=== PATIENT | male | born 1970 | race Two or more races ===

== ENCOUNTER 2024-05-12 03:14 | Emergency (ER) | payer OTHER ==
[~2024-05-12] VITALS: Ht 177.8 cm; Wt 97.7 kg
--- NOTE | 2024-05-12 03:36 | ED.PDOC ---
GI ASSESSMENT HPI Comments A 53 year old male presents to the ED with the chief complaint of abdominal pain onset 4 hours ago. Patient states he had pizza for dinner and a few hours after he began experiencing epigastric pain that radiates to his RUQ as well as nausea, vomiting. He tried taking Pepto Bismol but did not notice an improvement. Denies any past medical history as well as diarrhea, fever, dysuria or hematuria. No other symptoms or modifying factors present at this time. Chief Complaint: Abdominal Pain Time Seen by MD: 03:30 Reviewed Notes: Medications, Allergies Allergies: Coded Allergies: NO KNOWN ALLERGIES (Unverified , 05/12/24) Information Source: Patient Mode of Arrival: Ambulatory Timing: Hours Duration: Since onset Prehospital treatment: None Severity: Moderate Pain Location: Epigastric, RUQ Associated sign and symptoms: Nausea, Vomiting, Abdominal Pain Past Medical History PAST MEDICAL HISTORY: Denies Surgical History: Denies all surgeries Family History Family History: Reviewed,noncontributory to illness, No family hx of Cancer, No family hx of DM, No family hx of Heart mary jo, No family hx of HTN, No family hx ofKidney mary jo, No family hx of Liver mary jo, No family hx of Lung mary jo, No family hx of Stroke Social History Smoker: Non-Smoker Alcohol: Denies ETOH Use Drugs: Denies Drug Use Lives In: Home Constitutional: denies: chills, diaphoresis, fatigue, fever, malaise, sweats, weakness, others EENTM: denies: blurred vision, double vision, ear bleeding, ear discharge, ear drainage, ear pain, ear ringing, eye pain, eye redness, hearing loss, mouth pain, mouth swelling, nasal discharge, nose bleeding, nose congestion, nose pain, photophobia, tearing, throat pain, throat swelling, voice changes, others Respiratory: denies: cough, hemoptysis, orthopnea, SOB at rest, shortness of breath, SOB with excertion, stridor, wheezing, others Cardiovascular: denies: chest pain, dizzy spells, diaphoresis, Dyspnea on exertion, edema, irregular heart beat, left arm pain, lightheadedness, palpitations, PND, syncope, others Gastrointestinal: denies: abdomen distended, abdominal pain, blood streaked bowels, constipated, diarrhea, dysphagia, difficulty swallowing, hematemesis, melena, nausea, poor appetite, poor fluid intake, rectal bleeding, rectal pain, vomiting, others Genitourinary: denies: burning, dysuria, flank pain, frequency, hematuria, incontinence, penile discharge, penile sore, pain, testicle pain, testicle swelling, urgency, others Neurological: denies: dizziness, fainting, headache, left sided numbness, left sided weakness, numbness, paresthesia, pre-existing deficit, right sided numbness, right sided weakness, seizure, speech problems, tingling, tremors, weakness, others Musculoskeletal: denies: back pain, gout, joint pain, joint swelling, muscle pain, muscle stiffness, neck pain, others Integumetry: denies: bruises, change in color, change in hair/nails, dryness, laceration, lesions, lumps, rash, wounds, others Allergic/Immunocompromised: denies: Difficulty Healing, Frequent Infections, Hives, Itching, others Hematologic/Lymphatic: denies: anemia, blood clots, easy bleeding, easy bruising, swollen glands, others Endocrine: denies: excessive hunger, excessive sweating, excessive thirst, excessive urination, flushing, intolerance to cold, intolerance to heat, unexplained weight gain, unexplained weight loss, others Psychiatric: denies: anxiety, bipolar disorder, depression, hopeless, panic disorder, schizophrenia, sleepless, suicidal, others All Other Systems: Reviewed and Negative Physical Exam General Appearance: No Apparent Distress, Normal HEENT: Normal ENT Inspection, Pharynx Normal, TMs Normal Neck: Full Range of Motion, Non-Tender, Normal, Normal Inspection Respiratory: Chest Non-Tender, Lungs Clear, No Accessory Muscle Use, No Respiratory Distress, Normal Breath Sounds Cardiovascular: No Edema, No JVD, No Murmur, No Gallop, Normal Peripheral Pulses, Regular Rate/Rhythm Breast Exam: Deferred Gastrointestinal: No Organomegaly, Non Tender, No Pulsatile Mass, Normal Bowel Sounds, Soft Genitalia: Deferred Pelvic: Deferred Rectal: Deferred Extremities: No calf tenderness, Normal capillary refill, Normal inspection, Normal range of motion, Non-tender, No pedal edema Musculoskeletal : Apperance: Normal Neurologic: Alert, interlocking installer II-XII nml as Tested, No Motor Deficits, Normal Affect, Normal Mood, No Sensory Deficits Cerebellar Function: Normal Reflexes: Normal Skin: Dry, Normal Color, Warm Lymphatic: No Adenopathy Was a procedure done? Was a procedure done?: No GI differential Dx Differential Diagnosis: Cholangitis, Cholecystitis, Constipation, Gastroenteritis, Hepatitis, UTI, Urolithiasis, Dehydration, Electrolyte Imbalance, Bacterial, Impaction X-Ray, Labs, Meds, VS Vital Signs Date Time Temp Pulse Resp B/P (MAP) Pulse Ox O2 Delivery O2 Flow Rate FiO2 05/12/24 05:00 99.0 88 20 135/91 (106) 97 99.0 05/12/24 05:00 88 20 96 Room Air* 0 21 05/12/24 03:47 71 20 145/91 05/12/24 03:29 98.5 71 20 145/91 (109) 99 Lab Test 05/12/24 03:52 05/12/24 03:30 Range/Units White Blood Count 12.3 H 4.4-10.8 10^3/uL Red Blood Count 5.07 4.5-5.90 10^6/uL Hemoglobin 14.8 13.5-17.5 g/dL Hematocrit 43.0 41.0-53.0 % Mean Corpuscular Volume 84.8 80.0-100.0 fL Mean Corpuscular Hemoglobin 29.2 28.0-32.0 pg Mean Corpuscular Hemoglobin Concent 34.4 32.0-36.0 g/dL Red Cell Distribution Width 13.3 11.8-14.3 % Platelet Count 304 140-450 10^3/uL Mean Platelet Volume 7.1 6.9-10.8 fL Neutrophils (%) (Auto) 79.9 37.0-80.0 % Lymphocytes (%) (Auto) 11.6 10.0-50.0 % Monocytes (%) (Auto) 7.6 0.0-12.0 % Eosinophils (%) (Auto) 0.5 0.0-7.0 % Basophils (%) (Auto) 0.4 0.0-2.0 % Neutrophils # (Auto) 9.8 H 1.6-8.6 10 ^3/uL Lymphocytes # (Auto) 1.4 0.4-5.4 10 ^3/uL Monocytes # (Auto) 0.9 0-1.3 10 ^3/uL Eosinophils # (Auto) 0.1 0-0.8 10 ^3/uL Basophils # (Auto) 0.1 0-0.2 10 ^3/uL Nucleated Red Blood Cells 0.0 % Sodium Level 136 136-145 mmol/L Potassium Level 3.8 3.5-5.1 mmol/L Chloride Level 104 98-107 mmol/L Carbon Dioxide Level 24 20-31 mmol/L Anion Gap 8 5-15 Blood Urea Nitrogen 8 L 9-23 mg/dL Creatinine 1.04 0.700-1.30 mg/dL Glomerular Filtration Rate Calc 86 >90 mL/min BUN/Creatinine Ratio 7.7 L 10.0-20.0 Serum Glucose 139 H 74-106 mg/dL Calcium Level 9.7 8.7-10.4 mg/dL Total Bilirubin 0.7 0.2-1.0 mg/dL Aspartate Amino Transferase (AST) 20 13-40 U/L Alanine Aminotransferase (ALT) 24 7-40 U/L Alkaline Phosphatase 130 H 46-116 U/L Total Protein 7.6 5.7-8.2 g/dL Albumin 4.8 3.2-4.8 g/dL Lipase 56 H 12-53 U/L Urine Color Light-yellow Yellow Urine Clarity Clear Clear Urine pH 5.5 5.0-9.0 Urine Specific [place] 1.020 1.001-1.035 Urine Protein Negative Negative Urine Ketones Trace Negative Urine Blood Negative Negative /uL Urine Nitrite Negative Negative Urine Bilirubin Negative Negative Urine Urobilinogen Normal Negative mg/dL Urine Leukocyte Esterase Negative Negative /uL Urine RBC 1 0 - 3 /hpf Urine WBC 3 0 - 3 /hpf Urine Squamous Epithelial Cells None seen <5 /hpf Urine Bacteria None seen None Seen /hpf Urine Mucus Few None Seen Urine Glucose Normal Normal mg/dL Current Medications Medications (Trade) Dose Ordered Sig/Lito Route Start Time Stop Time Status Last Admin Sodium Chloride 1,000 ml @ 1,000 mls/hr Q1H ONCE IV 05/12/24 03:45 05/12/24 04:44 DC 05/12/24 03:49 Ondansetron HCl (Zofran) 4 mg ONCE ONCE IV 05/12/24 03:45 05/12/24 03:46 DC 05/12/24 03:48 Morphine Sulfate 4 mg ONCE ONCE IV 05/12/24 03:45 05/12/24 03:46 DC 05/12/24 03:47 Pantoprazole Sodium (Protonix) 40 mg ONCE ONCE IV 05/12/24 03:45 05/12/24 03:46 DC 05/12/24 03:48 Time of 1ST Reevaluation: 04:00 Reevaluation 1ST: Unchanged Patient Education/Counseling: Diagnosis, Treatment, Prognosis Family Education/Counseling: No Family Present Departure 1 Departure Time of Disposition: 05:20 (Patient presented with abdominal pain that was concerning for possible appendicits, gastritis, cholecystitis, colitis, gastroenteritis, sbo, or orther possible surgical emergency. Data: 1. I ordered and reviewed the result of at least 3 labs including a CBC, BMP, and Urinalysis. 2. I independently interpreted the following tests: CT Abdoment and Pelvis is concerning for acute cholecystitis .Risk:This patient has a high risk of morbidity due to further diagnostic testing or treatment and may suffer from an acute abdominal process disorder. Workup reveals acute cholecystitis and patient should be admitted for further workup. and possible expert consultation. ) Impression: Primary Impression: Acute cholecystitis Additional Impressions: Projectile vomiting with nausea Intractable abdominal pain Disposition: ADMITTED INPATIENT Admit to: Med Surg Condition: Guarded Critical Care Note Critical Care Time?: Yes Critical care comment: Intractable abdominal pain Authorized and Performed by: Karol Owen MD Total critical care time: Approximately 39 minutes Due to a high probability of clinically significant, life threatening deterioration, the patient required my highest level of preparedness to intervene emergently and I personally spent this critical care time directly and personally managing the patient. This critical care time included obtaining a history; examining the patient; pulse oximetry; ordering and review of studies; arranging urgent treatment with development of a management plan; evaluation of patient's response to treatment; frequent reassessment; and, discussions with other providers. This critical care time was performed to assess and manage the high probability of imminent, life-threatening deterioration that could result in multi-organ failure. It was exclusive of separately billable procedures and treating other patients and teaching time. Please see my other sections and the rest of the note for further information on patient assessment and treatment. Stability Stability form required: No I personally scribed for KAROL OWEN MD ([email or web address]) on 05/12/24 at 03:36. Electronically submitted by Nelli Sanon ([email or web address]). KAROL OWEN MD May 12, 2024 03:36
[2024-05-12] MEDS: MORPHINE SULFATE 4 MG/ML SYR/VIAL IV ONE ×3 (03:47→09:40)
[2024-05-12] MEDS: PANTOPRAZOLE 40 MG/10 ML VIAL INJ IV ONE (03:48)
[2024-05-12] MEDS: ONDANSETRON HCL 4 MG/2 ML VIAL IV ONE (03:48)
[2024-05-12] MEDS: SODIUM CHLORIDE 0.9% 1,000 ML IV ONE (03:49)
[2024-05-12 03:52] LABS: Urine Bacteria None Seen /hpf (None Seen)
[2024-05-12 04:07] LABS: Urine Blood Negative /uL (Negative); Urine Clarity Clear (Clear); Urine Color Light-Yellow (Yellow); Urine Mucus FEW (None Seen); Urine Protein, UAD Negative (Negative); Urine Urobilinogen Normal (Negative); Urine WBC 3 /hpf (0 - 3); Urine pH 5.5 (5.0-9.0)
[2024-05-12 04:12] LABS: Basophils # (auto) 0.1 10 ^3/uL (0-0.2); Basophils % (auto) 0.4 % (0.0-2.0); Eosinophils # (auto) 0.1 10 ^3/uL (0-0.8); Eosinophils % (auto) 0.5 % (0.0-7.0); Hemoglobin 14.8 g/dL (13.5-17.5); Lymphocytes # (auto) 1.4 10 ^3/uL (0.4-5.4); Lymphocytes % (auto) 11.6 % (10.0-50.0); Mean Corpuscular Hemoglobin 29.2 pg (28.0-32.0); Mean Corpuscular Hgb Conc. 34.4 g/dL (32.0-36.0); Mean Corpuscular Volume 84.8 fL (80.0-100.0); Monocytes # (auto) 0.9 10 ^3/uL (0-1.3); Monocytes % (auto) 7.6 % (0.0-12.0); Neutrophils # (auto) 9.8 10 ^3/uL (1.6-8.6); Neutrophils % (auto) 79.9 % (37.0-80.0); Platelet Count (auto) 304 10^3/uL (140-450); Red Blood Cells 5.07 10^6/uL (4.5-5.90); Red Cell Distribution Width 13.3 % (11.8-14.3); White Blood Cell 12.3 10^3/uL (4.4-10.8)
[2024-05-12 04:32] LABS: Alanine Aminotransferase 24 U/L (7-40); Albumin 4.8 g/dL (3.2-4.8); Alkaline Phosphatase 130 U/L (46-116); Anion Gap 8 (5-15); Aspartate Aminotransferase 20 U/L (13-40); BUN/Creatinine Ratio 7.7 (10.0-20.0); Bilirubin, Total 0.7 mg/dL (0.2-1.0); Blood Urea Nitrogen 8 mg/dL (9-23); Calcium 9.7 mg/dL (8.7-10.4); Carbon Dioxide 24 mmol/L (20-31); Chloride 104 mmol/L (98-107); Glucose 139 mg/dL (74-106); Lipase 56 U/L (12-53); Potassium 3.8 mmol/L (3.5-5.1); Sodium 136 mmol/L (136-145); Total Protein 7.6 g/dL (5.7-8.2)
[2024-05-12 05:00] VITALS: PULSE 88; RESP 20; O2SAT 96
[2024-05-12] MEDS: IOHEXOL 300 MG/ML 100ML BOTTLE IJ ONE (05:15)
--- NOTE | 2024-05-12 05:17 | DVH ---
Examination: ABPLIV CLINICAL INDICATION: ruq pain. COMPARISON: None. CONTRAST USED: Intravenous. TECHNIQUE: A post-contrast CT study of the abdomen and pelvis was performed after administration of intravenous contrast medium. The examination was conducted with 5 mm thin slices, following ALARA (A s Low As Reasonably Achievable) principles. Multiplanar reconstructions were obtained. FINDINGS: CT Abdomen: Lung Base: The evaluation of the lung bases demonstrates no focal infiltrates or pleural effusion. Liver: The liver demonstrates fatty infiltration. It is normal in size, and the portal venous radic les are unremarkable, with no intrahepatic biliary dilatation. Gallbladder: Multiple calculi are observed within the gallbladder. The gallbladder wall is thickene d and edematous, measuring approximately 4 mm, with subtle pericholecystic fat stranding. These find ings are suggestive of cholelithiasis with cholecystitis. Spleen: The spleen is normal in size, with no focal abnormalities. Pancreas: The pancreas is normal in size and shape, with no focal lesions. The peripancreatic fat p lanes are preserved. Retroperitoneum: Both adrenal glands are normal in size and morphology. No significant retroperiton eal lymphadenopathy is observed. Multiple tiny, non-obstructing calculi, each 1-2 mm in size, are no pilar in both kidneys. The kidneys are normal in size, with no hydronephrosis. Vessels: Atherosclerotic calcifications are present in the aorta and its branches, but they appear o therwise unremarkable. The IVC and mesenteric vessels are normal. Stomach and Bowel: The bowel loops are unremarkable with no evidence of ascites. Colonic diverticul osis is present, without signs of diverticulitis. Skeletal System (Thoracolumbar Spine): Mild degenerative changes are observed in the thoracolumbar s pine. The pelvic bones are otherwise unremarkable. CT Pelvis: Appendix: The appendix is not visualized, possibly due to patient anatomy or positioning. Colon: The ascending, transverse, descending, sigmoid colon, and rectum appear unremarkable, aside f rom colonic diverticulosis. Bladder: The urinary bladder is unremarkable. Prostate: The prostate is mildly enlarged. Inguinal Region: A left inguinal hernia is noted, containing fat. Lymph Nodes and Fluid Collection: No pelvic lymphadenopathy or abnormal fluid collections are identi fied. IMPRESSION: 1. Cholelithiasis with cholecystitis, evidenced by multiple gallbladder calculi, gallbladder wall th ickening and edema, and subtle pericholecystic fat stranding. 2. Fatty infiltration of the liver. 3. Multiple non-obstructing renal calculi in both kidneys, measuring 1-2 mm each. 4. Atherosclerotic calcification in the aorta and its branches. 5. Colonic diverticulosis without evidence of diverticulitis. 6. Mildly enlarged prostate. 7. Left inguinal hernia containing fat. Electronically Signed 05/12/2024 05:09 Neema Cohn
[2024-05-12] MEDS: metroNIDAZOLE 500MG/100ML 100 ML IV ONE (05:30)
[2024-05-12] MEDS: ceFAZolin 2 GM/D5W50ml 50 ML IV ONE (06:30)
[2024-05-12 07:35] VITALS: PULSE 85; RESP 21; O2SAT 96
[2024-05-12 09:48] LABS: COVID19 ANTIGEN SOFIA FIA NEGATIVE (NEGATIVE)
[2024-05-12 11:20] VITALS: BP 127/77; PULSE 89; RESP 19; TEMP 99; O2SAT 91
== END 2024-05-12 09:52 | disposition short-term general hospital (02) ==
LOC: ER 03:14
DX: K80.12 Calculus of gallbladder with acute and chronic cholecystitis without obstruction (principal); R11.2 Nausea with vomiting, unspecified; R10.84 Generalized abdominal pain; Z20.822 Contact with and (suspected) exposure to COVID-19
CPT/HCPCS: 36415; 74177; 80053; 81001; 83690; 85025; 87426; 96361; 96365; 96366; 96367; 96375; 96376; 99285; J0690; J2270; J2405; J2470; J3490; Q9967; 96368